=== PATIENT | female | born 1995 | race Two or more races ===

== ENCOUNTER 2024-11-03 17:41 | Emergency (ER) | payer OTHER, SELFPAY ==
[2024-11-03 17:43] VITALS: BP 106/67
--- NOTE | 2024-11-03 18:18 | ED.GENMED ---
History of Present Illness
General
Chief Complaint: Ear Problem
Source: patient
Exam Limitations: none
Time Seen by Provider: 11/03/24 18:01
History of Present Illness
History of Present Illness:
See MDM
Past History
Past History
ED Past Medical History: None
ED Past Surgical History: None
Social History
Tobacco: Non-smoker
Alcohol: None
Drug: None
Personal: Single
Living: with family
Employment: Employed
Family History
Family History: Other (Noncontributory)
Phy Exam
Physical Exam
Physical Exam:
See MDM
Course
Orders/Labs/Results
Orders:
Orders
11/03/24 18:17
Amoxicillin [Amoxil] 500 mg PO NOW STA
Vital Signs
Initial and Last Documented VS:
Initial Vital Signs
Temp Pulse Resp BP Pulse Ox
98.6 F 80 16 106/67 100
11/03/24 17:43 11/03/24 17:43 11/03/24 17:43 11/03/24 17:43 11/03/24 17:43
Last Documented Vital Signs
Temp Pulse Resp BP Pulse Ox
98.6 F 80 16 106/67 100
11/03/24 17:43 11/03/24 17:43 11/03/24 17:43 11/03/24 17:43 11/03/24 17:43
MDM/Problems Addressed
Differential Diagnosis Includes:
HPI and MDM Narrative:
29-year-old female presenting for evaluation of right ear pain. Her son and daughter recently have been sick. Her son has a GI bug and her daughter has flulike illness. Mother is concerned because her ear pain has been ongoing for the past 2
weeks. She intermittently uses Q-tips. She denies hearing loss. On exam, she does have erythema noted to her right TM. Is not bulging but will start amoxicillin given duration of symptoms
Physical exam
General: Well appearing and non-toxic
HEENT: protecting airway. Right TM erythematous but not bulging
Neck: appears supple
CV: No evidence of cyanosis
Resp: No accessory muscle use
Abd: Non-distended
Extremities: No deformities
Neuro: alert
Psych: Normal affect
Skin: Intact
Problems Addressed including Acute and Chronic Conditions affecting care:
1. Otitis media
Acuity: acute
Prognosis: stable
Details: Will start amoxicillin given duration of symptoms
Differential Diagnosis (but not limited to): Otitis externa, otitis media, viral syndrome
Testing considered: COVID and flu testing
Drug therapy (if applicable): OTC meds, please see d/c instruction regarding Rx drugs
Amount and/or Complexity of Data Reviewed
Clinical info obtained from: Patient
External data reviewed: N/A
Labs I independently reviewed (but not limited to): N/A
Radiology: N/A
Pulse Ox: not hypoxic
EKG independently reviewed: N/A
Instructional Coach: N/A
Critical Care: N/A
Risk of Complication:
Social Determinants of health: Good social support
Discussed with other providers: N/A
Escalation of Care includes Admit/Obs: After being observed in the Emergency Department, pt stable for discharge.
Occasional wrong word or 'sound a like' substitutions may have occurred due to the inherent limitations of voice recognition software. Read the chart carefully and recognize, using context, where substitutions have occurred.
*Critical Care Note
Total Time (30-74mins, 75-104mins- exclusive of procedures): Not Applicable
ED Attending Note
-
Portions of this chart may have been created with voice recognition software.� Occasional wrong word or��sound alike� substitutions may have occurred due to the inherent limitations of voice recognition software.
Discharge Plan
Departure
Patient Disposition: Home (Routine Discharge)
Date of Disposition: 11/03/24
Time of Disposition: 18:20
Patient with high blood pressure during this ER visit?: No
Discharge Problem:
Acute otitis media
Instructions: Ear infections in adults
Prescriptions:
New
amoxicillin 500 mg capsule
500 mg PO BID Qty: 14 0RF
No Action
ibuprofen 600 mg tablet
600 mg PO Q6H PRN (Reason: Pain) 5 Days Qty: 20 0RF
lidocaine 5 % adhesive patch,medicated
1 patch topical DAILY PRN (Reason: pain) 30 Days Qty: 30 0RF
Rx Instructions:
Please apply for 12 hours and then remove for 12 hours
cyclobenzaprine 5 mg tablet
5 mg PO HS PRN (Reason: muscle spasm) 5 Days Qty: 5 0RF
Activity Restrictions/Additional Instructions:
Please return for any worsening symptoms.
You may return at any time if you have further concerns.
Please follow up with your doctor at the first available appointment, preferably this week.
Thank you for choosing [facility].
Interventions
Interventions:
*Risk Screen - Suicide Last Done: 11/03/24 17:43
*Neglect/Abuse Screening Last Done: 11/03/24 17:43
Discharge Date and Time
Print Language: ARMENIAN
[2024-11-03] MEDS: AMOXIL 500 MG PO (18:57)
== END 2024-11-03 19:15 | disposition home or self-care (01) ==
LOC: EMR 17:41
PROVIDERS: EMERGENCY PHYSICIAN Student in an Organized Health Care Education/Training Program; FAMILY PHYSICIAN Family Medicine
DX: H66.91 Otitis media, unspecified, right ear (principal)
CPT/HCPCS: 99283

== ENCOUNTER 2024-12-22 08:45 | Emergency (ER) | payer OTHER, SELFPAY ==
[2024-12-22] VITALS (8 sets, daily range): BP systolic 95–120; BP diastolic 57–75
--- NOTE | 2024-12-22 10:14 | ED.GENMED ---
History of Present Illness
General
Chief Complaint: Chest Pain
Source: patient
Exam Limitations: none
Time Seen by Provider: 12/22/24 09:02
Nursing documentation reviewed up to this point in time: agreed with
History of Present Illness
History of Present Illness:
28-year-old female presenting to the emergency department today with concerns of left-sided chest pain that started roughly an hour prior to arrival while making breakfast. Did eat just prior to arrival as well. Associated mild shortness of breath
nausea. Denies similar symptoms in the past. No history of recent trauma surgery immobilization, blood clots, leg swelling, estrogen product usage.
Past History
Past History
ED Past Medical History: None
ED Past Surgical History: None
Social History
Tobacco: Non-smoker
Alcohol: None
Drug: None
Personal: Single
Living: with family
Employment: Employed
Family History
Family History: Other (Noncontributory)
Review of Systems
Review of Systems
Allergies reviewed?: Yes
All Other Systems: ROS reviewed and negative except as documented in HPI and ROS
Phy Exam
Physical Exam
Physical Exam:
GENERAL: Alert , in no apparent distress
EYE: pupils equal and reactive
NECK: Supple, no significant adenopathy.
ENT: o/p clr, mmm.
CARDIAC: Regular rate and rhythm .
LUNGS: Clear breath sounds bilaterally, no acute respiratory distress, no wheezes/rales/rhonchi
ABDOMEN: Soft, without focal tenderness, no r/g, no cvat
NEUROLOGICAL: Alert and oriented, no focal neuro deficits
SKIN: Warm and dry, skin intact.
MUSCULOSKELETAL: No edema, well perfused.
PSYCH: Normal and appropriate interaction.
Scores
Heart Score for Chest Pain Patients
STEMI patient?: No
History: Slightly or Non-Suspicious
ECG: Normal
Age: </= 45 years
Risk Factors: No Risk Factors
Troponin: </= Normal Limit
Heart Score for Chest Pain Patients: 0
Heart Score Risk: 2.5% MACE over next 6 weeks
Course
Orders/Labs/Results
Orders:
Orders
12/22/24 08:47
ECG [Electrocardiogram (*1)] Urgent
Reason for Study: Chest Pain
EKG- Treatment ONCE
12/22/24 09:54
Aspirin 325 mg PO NOW STA
Chest [CR Chest - 2 Views ] Urgent
Comment:
Reason For Exam: cp
12/22/24 10:56
Complete Blood Count/With Diff Urgent
Comprehensive Metabolic Panel Urgent
Magnesium Urgent
Troponin I Urgent
12/22/24 12:06
Electrocardiogram (*1) Urgent
Reason for Study: Chest Pain
EKG- Treatment ONCE
12/22/24 13:41
Troponin I Urgent
12/22/24 15:01
Ketorolac [Toradol] 15 mg IV NOW STA
Abnormal Lab Results
12/22/24
10:56
MPV 11.6 H fL
(7.4-10.4)
Monocytes % 10.4 H %
(1.7-9.3)
Chloride 109 H mmol/L
(98-107)
ALT 48 H U/L
(0-35)
Alkaline Phosphatase 32 L U/L
(38-126)
12/22/24 10:56
12/22/24 10:56
Vital Signs
Initial and Last Documented VS:
Initial Vital Signs
Temp Pulse Resp BP Pulse Ox
98.7 F 94 16 120/75 100
12/22/24 08:47 12/22/24 08:47 12/22/24 08:47 12/22/24 08:47 12/22/24 08:47
Last Documented Vital Signs
Temp Pulse Resp BP Pulse Ox
98.7 F 76 14 95/57 100
12/22/24 08:47 12/22/24 14:55 12/22/24 14:55 12/22/24 14:55 12/22/24 14:55
MDM/Problems Addressed
MDM/Problems Addressed:
Well-appearing 29-year-old female presenting to the emergency department with concerns of central chest discomfort does radiate to the back. Occurred while making breakfast this morning for family she did eat prior. Vital signs normal during my
assessment and upon arrival. No risk factors for PE and patient is PERC negative. Otherwise EKG is normal. Patient repeated troponin and EKG without acute abnormalities. Vital signs normal throughout ER stay patient well-appearing no distress
during reassessment stable for outpatient follow-up. Return precautions given.
*Critical Care Note
Total Time (30-74mins, 75-104mins- exclusive of procedures): Not Applicable
ED Attending Note
-
Portions of this chart may have been created with voice recognition software.� Occasional wrong word or��sound alike� substitutions may have occurred due to the inherent limitations of voice recognition software.
Discharge Plan
Departure
Patient Disposition: Home (Routine Discharge)
Date of Disposition: 12/22/24
Time of Disposition: 15:01
Patient with high blood pressure during this ER visit?: No
Condition: Good
Covid-19: Not Applicable
Discharge Problem:
Chest pain
Instructions: Chest Pain PCP Follow Up
Prescriptions:
No Action
ibuprofen 600 mg tablet
600 mg PO Q6H PRN (Reason: Pain) 5 Days Qty: 20 0RF
lidocaine 5 % adhesive patch,medicated
1 patch topical DAILY PRN (Reason: pain) 30 Days Qty: 30 0RF
Rx Instructions:
Please apply for 12 hours and then remove for 12 hours
cyclobenzaprine 5 mg tablet
5 mg PO HS PRN (Reason: muscle spasm) 5 Days Qty: 5 0RF
amoxicillin 500 mg capsule
500 mg PO BID Qty: 14 0RF
Referrals:
UNKNOWN - PT DOES,NOT KNOW [Family Provider] -
Activity Restrictions/Additional Instructions:
You came to the emergency department today with concerns of chest pain. Here you had a reassuring assessment. Please follow close with the primary care doctor. Return for any worsening, new or concerning symptoms.
Discharge Date and Time
Print Language: TAIWANESE
[2024-12-22] MEDS: ASPIRIN 325 MG PO (11:06)
[2024-12-22 11:16] LABS: % Basophils 0.2 % (0-2); % Eosinophils 4.1 % (0-6); % Immature Granulocytes 0.2 % (0-0.5); % Lymphocytes 31.1 % (20.5-51.1); % Monocytes 10.4 % (1.7-9.3); Absolute Eosinophils 0.2 10^3/uL (0-0.7); Absolute Lymphocytes 1.5 10^3/uL (1.2-3.4); Absolute Monocytes 0.5 10^3/uL (0.1-0.6); Absolute Neutrophils 2.6 10^3/uL (1.4-6.5); Hematocrit 38.2 % (37.0-47.0); Hemoglobin 12.6 g/dL (12.0-16.0); Mean Corpuscular Hgb 29.1 pg (27.0-31.0); Mean Corpuscular Volume 88.2 fL (81.0-99.0); Mean Platelet Volume 11.6 fL (7.4-10.4); Nucleated Red Blood Cells % 0 %; Platelet Count 200 10^3/uL (130-400); Red Blood Cell Count 4.33 10^6/uL (4.20-5.40); Red Cell Dist. Width 13.2 % (11.5-14.5); White Blood Cell Count 4.8 10^3/uL (4.8-10.8)
[2024-12-22 11:32] LABS: ALT (SGPT) 48 U/L (0-35); AST (SGOT) 23 U/L (14-36); Albumin 4.3 g/dl (3.5-5.0); Alkaline Phosphatase 32 U/L (38-126); Blood Urea Nitrogen 16 mg/dl (7-17); Calcium 9.6 mg/dl (8.4-10.2); Carbon Dioxide 28 mmol/L (22-30); Chloride 109 mmol/L (98-107); Glucose 83 mg/dl (70-99); Potassium 4.9 mmol/L (3.5-5.1); Sodium 143 mmol/L (135-145); Total Bilirubin 0.5 mg/dl (0.2-1.3); Total Protein 7.3 g/dl (6.3-8.2); eGFR > 60.00
[2024-12-22 11:44] LABS: Troponin I < 0.012 ng/ml
[2024-12-22 14:15] LABS: Troponin I < 0.012 ng/ml
[2024-12-22] MEDS: TORADOL 15 MG IV (15:31)
== END 2024-12-22 16:00 | disposition home or self-care (01) ==
LOC: EMR 08:45
PROVIDERS: Physician Assistant; EMERGENCY PHYSICIAN Student in an Organized Health Care Education/Training Program
DX: R07.89 Other chest pain (principal); R06.02 Shortness of breath; R11.0 Nausea
CPT/HCPCS: 99284; 96374; 71046; 80053; 83735; 84484; 85025; 93005